=== PATIENT | female | born 1970 | race Caucasian/White ===

== ENCOUNTER 2022-05-02 09:25 | Emergency (ER) | payer OTHER ==
[~2022-05-02] VITALS: Ht 160 cm; Wt 79.0 kg
[2022-05-02 09:58] VITALS: BP 149/93
[2022-05-02 10:00] VITALS: BP 159/96
[2022-05-02 10:31] VITALS: BP 135/85
[2022-05-02] MEDS ORDERED: AMOX/K CLAV875 M1 PO (10:37)
[2022-05-02 11:00] VITALS: BP 139/72
[2022-05-02 11:04] VITALS: BP 139/72
== END 2022-05-02 11:12 | disposition home or self-care (01) | DRG 605 ==
LOC: ED 09:25
DX: S00.571A Other superficial bite of lip, initial encounter (principal); W54.0XXA Bitten by dog, initial encounter